=== PATIENT | male | born 1980 | race Caucasian/White ===

== ENCOUNTER 2020-12-19 23:29 | Emergency (ER) | payer OTHER ==
[~2020-12-19] VITALS: Ht 180.3 cm; Wt 90.7 kg
[2020-12-19 23:35] VITALS: BP 148/100
--- NOTE | 2020-12-19 23:40 | NUR ---
DR. RICE WITH PT FOR EVAL.
--- NOTE | 2020-12-19 23:46 | NUR ---
PT CLEARED FOR DISCHARGE PER DR. RICE. PT IN [employer] CUSYODY. PT AMBULATORY WITH STEADY GAIT. PT VSS. DISCHARGE INSTRUCTIONS GIVEN TO [employer] AND PT. PT AND [employer] VERBALIZED UNDERSTANDING.
== END 2020-12-19 23:47 ==
LOC: ER 23:29
DX: Z02.89 Encounter for other administrative examinations (principal); F15.10 Other stimulant abuse, uncomplicated